=== PATIENT | male | born 1985 | race Caucasian/White ===

== ENCOUNTER 2020-04-10 12:55 | Emergency (ER) | payer OTHER ==
[~2020-04-10] VITALS: Ht 193 cm; Wt 145.1 kg
--- NOTE | 2020-04-10 13:04 | NUR ---
PT W/C ASSISTED TO BED 6.
[2020-04-10 13:08] VITALS: BP 157/98
--- NOTE | 2020-04-10 13:13 | NUR ---
35 y/o male from home c/o lower back pain x 2 days s/p pushing [email or web address] at work. States he felt a stretch in lower back with increased pain. 10/10 constant cramping pain. Increased pain with ambulation. Pain radiates from lower back to bilateral legs. Skin warm, dry, intact. Positioned for comfort. medhx: denies
[2020-04-10] MEDS ORDERED: KETOROLAC 30 MG/ML VIAL IM ONE (13:20)
[2020-04-10] MEDS ORDERED: ONDANSETRON 4 MG ODT PO ONE (13:20)
[2020-04-10] MEDS ORDERED: HYDROcodone/APAP 5/325 MG 1 TAB TAB PO ONE (13:20)
--- NOTE | 2020-04-10 13:50 | NUR ---
Patient discharged with v/s stable. Written and verbal after care instructions given and explained. Patient alert, oriented and verbalized understanding of instructions. Wheel Chair Assisted with to car. All questions addressed prior to discharge. ID band removed. Patient advised to follow up with PMD. Rx of Valium 5mg, [place] 5/325 mg, ibuprofen 60mg given. Patient educated on indication of medication including possible reaction and side effects. Opportunity to ask questions provided and answered.
[2020-04-10 13:52] VITALS: BP 157/98
== END 2020-04-10 13:50 | disposition home or self-care (01) ==
LOC: MED 12:55
DX: M54.5 Low back pain (principal)
CPT/HCPCS: 96372; 99283; J1885; Q0162

== ENCOUNTER 2022-04-20 23:40 | Emergency (ER) | payer OTHER ==
[~2022-04-20] VITALS: Ht 193 cm; Wt 149.7 kg
[2022-04-20 23:45] VITALS: BP 140/90
--- NOTE | 2022-04-20 23:48 | NUR ---
to lobby a/w bed ambulatory
--- NOTE | 2022-04-21 00:53 | NUR ---
pt to bed #3
--- NOTE | 2022-04-21 01:00 | NUR ---
PT C/O RIGHT ELBOW PAIN, DENIES ANY INJURY, WOKE UP WITH IT SWOLLEN, RED, WARM TO TOUCH. PT SITTING IN BED, NO DISTRESS OBSERVED.
--- NOTE | 2022-04-21 01:37 | NUR ---
Dr. Romero examining patient.
[2022-04-21] MEDS ORDERED: KETOROLAC 60 MG/2 ML VIAL IM ONE (01:40)
--- NOTE | 2022-04-21 01:40 | NUR ---
covering primary RN for lunch relief. see complete assessment
[2022-04-21] MEDS ORDERED: CEPH-588 PO (01:56)
[2022-04-21] MEDS ORDERED: IBUP-2213 PO (01:56)
[2022-04-21 02:06] VITALS: BP 122/70
--- NOTE | 2022-04-21 02:09 | NUR ---
Patient discharged with v/s stable. Written and verbal after care instructions given and explained. Patient alert, oriented and verbalized understanding of instructions. Ambulatory with steady gait. All questions addressed prior to discharge. ID band removed. Patient advised to follow up with PMD. Rx SENT TO PHARMACY. Patient educated on indication of medication including possible reaction and side effects. Opportunity to ask questions provided and answered.
== END 2022-04-21 02:05 | disposition home or self-care (01) ==
LOC: MED 23:40
DX: L03.113 Cellulitis of right upper limb (principal); F12.90 Cannabis use, unspecified, uncomplicated; Z98.890 Other specified postprocedural states; Z79.1 Long term (current) use of non-steroidal anti-inflammatories (NSAID); Z79.2 Long term (current) use of antibiotics
CPT/HCPCS: 96372; 99283; J1885

== ENCOUNTER 2024-01-27 08:32 | Emergency (ER) | payer SELFPAY ==
[~2024-01-27] VITALS: Ht 193 cm; Wt 149.7 kg
[~2024-01-27 08:32] MED LIST: CEPH-588 PO; IBUP-2213 PO
[2024-01-27 08:47] VITALS: BP 144/90; PULSE 97; RESP 16; TEMP 98.4; O2SAT 98
[2024-01-27] MEDS: KETOROLAC 30 MG/ML VIAL IM ONE (09:29)
[2024-01-27] MEDS ORDERED: IBUP-2218 PO (11:23)
[2024-01-27] MEDS ORDERED: CEPH-588 PO (11:23)
== END 2024-01-27 11:39 | disposition home or self-care (01) ==
LOC: MED 08:32
DX: L03.113 Cellulitis of right upper limb (principal); Z79.899 Other long term (current) drug therapy
CPT/HCPCS: 73080; 73200; 96372; 99285; J1885